=== PATIENT | female | born 1995 | race Caucasian/White ===

== ENCOUNTER 2016-03-11 10:33 | Outpatient (CLI) | END 2016-03-11 10:34 | disposition home or self-care (01) | LOC: LAB 10:33 | PROVIDERS: ATTEND Nurse Practitioner Family | DX: Z20.2 Contact with and (suspected) exposure to infections with a predominantly sexual mode of transmission (principal) | CPT/HCPCS: 87800 ==

== ENCOUNTER 2016-04-08 15:53 | Outpatient (CLI) ==
[2016-04-08 17:04] LABS: FLU INTERNAL QC INTERNAL QC VALID; RAPID FLU A NEGATIVE (NEGATIVE); RAPID FLU B NEGATIVE (NEGATIVE)
== END 2016-04-08 15:54 | disposition home or self-care (01) ==
LOC: LAB 15:53
PROVIDERS: ATTEND Nurse Practitioner Family
DX: J02.9 Acute pharyngitis, unspecified (principal); R05 Cough
CPT/HCPCS: 87651; 87804; 87880

== ENCOUNTER 2017-06-07 19:11 | Emergency (ER) | payer OTHER ==
[2017-06-07 19:22] VITALS: BP 110/75; TEMP 98.3; BMI 43.9
[2017-06-07] MEDS ORDERED: MOTRIN PO STA (19:38)
[2017-06-07] MEDS ORDERED: ED AFTER HOURS SUPPLY MED SENT HOME PO ONE (19:38)
--- NOTE | 2017-06-07 19:38 | ED.PDOC ---
General ED Provider: Dr. ROSHNI LAMBERT Chief Complaint: Tooth Problem Stated Complaint: Had Left lower molar removed 2 days ago has been taking Clindamycin 4 times a day. Time Seen by Physician: 19:35 Mode of Arrival: Walk-In Information Source: Patient Exam Limitations: No limitations Nursing and Triage Documentation Reviewed and Agree: Yes Reviewed sepsis parameters & appropriate labs ordered?: No System Inflammatory Response Syndrome: Not Applicable Sepsis Protocol: For patient's 13 years and over: Temp is 96.8 and below OR 101 and greater Pulse >90 BPM Resp >20/minute Acutely Altered Mental Status Are patient's symptoms suggestive of a new infection, such as: -Pneumonia -Skin, Soft Tissue -Endocarditis -UTI -Bone, Joint Infection -Implantable Device -Acute Abdominal Infection -Wound Infection -Meningitis -Blood Stream Catheter Infection -Unknown System Inflammatory Response Syndrome: Not Applicable EENT Complaint Exam - Dental/Oral Complaint/Exam Mechanism of Injury: No known trauma Onset/Duration: 2 days Symptoms Are: Still present Timing: Constant Initial Severity: Moderate Current Severity: Severe Location: Left lower molar Character: Reports: Aching, Throbbing Aggravating: Reports: Heat, Cold, Chewing Associated Signs and Symptoms: Reports: Swelling (on the jaw) Related History: Reports: Similar episode, Third molars absent Cardiac Risk Factors: Reports: None Dental/Oral Surgical History: Reports: Third Molar Extractions Tooth Findings: Present: Percussion tenderness Cervical Lymphadenopathy Present: No Facial Swelling Present: No Bleeding Present: No Oropharynx Findings: Absent: Clots, Active bleeding Septal Hematoma: No Foreign Body Present: No Dysphagia Present: No Drooling Present: No Asymmetrical Tonsillar Swelling Present: No Uvula Midline: No Mala-tonsillar Fluctuence: No Trismus Present: No Palatal Petechiae Present: No Scarlatinaform Rash Present: No Teeth Picture: 1 - Dry socket Differential Diagnoses: Dental Abcess Review of Systems - Review Of Systems Constitutional: Reports: No symptoms Eyes: Reports: No symptoms Ears, Nose, Mouth, Throat: Reports: Mouth pain Respiratory: Reports: No symptoms Cardiac: Reports: No symptoms GI: Reports: No symptoms : Reports: No symptoms Musculoskeletal: Reports: No symptoms Skin: Reports: No symptoms Neurological: Reports: No symptoms Endocrine: Reports: No symptoms Hematologic/Lymphatic: Reports: No symptoms All Other Systems: Reviewed and Negative Past Medical History - Past Medical History Previously Healthy: Yes Endocrine: Reports: None Cardiovascular: Reports: None Respiratory: Reports: None Hematological: Reports: None Gastrointestinal: Reports: None Genitourinary: Reports: None Neuro/Psych: Reports: None Musculoskeletal: Reports: None Cancer: Reports: None Last Menstrual Period: UNKNOWN - Surgical History General Surgical History: Reports: Tonsillectomy - Family History Family History: Reports: Unknown - Social History Smoking Status: Current every day smoker, Light tobacco smoker Hx Substance Use: No Alcohol Screening: None - Immunizations Tetanus Shot up to Date: Yes Physical Exam - Physical Exam Appearance: Ill-appearing Ill-appearing: Moderate Pain Distress: Severe Respiratory: Airway patent, Breath sounds clear, Breath sounds equal, Respirations nonlabored Cardiovascular: RRR, Pulses normal, No rub, No murmur GI/: Soft, Nontender, No masses, Bowel sounds normal, No Organomegaly Psychiatric: Anxious Critical Care Note - Critical Care Note Total Time (mins): 0 Course - Course Vital Signs: Temp Pulse Resp BP Pulse Ox 06/07/17 19:11 98.3 F 73 18 110/75 97 Departure - Departure Time of Disposition: 19:59 Disposition: HOME SELF-CARE Discharge Problem: Dry tooth socket, Dental abscess Instructions: Dental Abscess (ED), Dry Socket (ED) Condition: Fair Pt referred to PMD for follow-up: Yes IPMP verified?: No Additional Instructions: Take medications as prescribed Stop taking Ultram due to allergy Take hydrocodone as need for pain Take Motrin as needed for inflammation. Follow up with your dentist in 3 days Prescriptions: Hydrocodone/Acetaminophen [[place] 5-325 Tablet] 1 tab PO Q6HR PRN #14 tablet PRN Reason: PAIN Fluconazole [Diflucan] 150 mg PO DAILY #1 tablet Allergies/Adverse Reactions: Allergies amoxicillin trihydrate [From Amoxil] Allergy (Severe, Unverified 03/11/16 09:47) Patient unsure. Rash. Hives Penicillins Allergy (Severe, Unverified 03/11/16 09:47) rash, hives Sulfa (Sulfonamide Antibiotics) Allergy (Severe, Unverified 01/16/17 09:47) Hives tramadol Adverse Reaction (Verified 06/07/17 19:25) Hives Home Medications: Ambulatory Orders Clindamycin HCl 300 mg PO QID 06/07/17 Fluconazole [Diflucan] 150 mg PO DAILY #1 tablet 06/07/17 Hydrocodone/Acetaminophen [[place] 5-325 Tablet] 1 tab PO Q6HR PRN #14 tablet Medroxyprogesterone Acetate [Depo-Provera] 150 mg IM DIRECTED 06/07/17
[2017-06-07] MEDS ORDERED: NORCO 7.5-325 ONE (20:01)
== END 2017-06-07 20:10 | disposition home or self-care (01) ==
LOC: ED 19:11
DX: K04.7 Periapical abscess without sinus (principal); M27.3 Alveolitis of jaws; F17.210 Nicotine dependence, cigarettes, uncomplicated
CPT/HCPCS: 99282